=== PATIENT | male | born 1970 | race Caucasian/White ===

== ENCOUNTER → 2018-10-05 | Outpatient (CLI) | payer OTHER ==
[~2018-10-05] MED LIST: DIAZEPAM 5 MG TABLET ONE
--- NOTE | 2018-10-05 13:28 | RADIOLOGY REPORT (SQ) ---
EXAM DESCRIPTION: MRI LT UPPER JOINT WITHOUT COMPLETED DATE/TIME: 10/05/2018 12:54 pm REASON FOR STUDY: LT SHOULDER PAIN M25.512 PAIN IN LEFT SHOULDER COMPARISON: None. TECHNIQUE: Left shoulder images acquired and stored on PACS. Multiplanar imaging to include fat sens itive sequences such as T1, water sensitive sequences such as FST2/STIR, cartilage sensitive sequence s such as FSPD/gradient-echo sequences. LIMITATIONS: None. FINDINGS: BONE MARROW AND CORTEX: No worrisome bone lesions or marrow replacement. No occult fractur es. JOINT OR BURSAL EFFUSION: Trace fluid in the subacromial/subdeltoid bursa. Physiologic glenohumeral joint fluid. GLENO-HUMERAL ARTICULATION: Normal articulation. No subluxation. No cystic change. No osteophytes or cartilage loss. ACROMION AND AC JOINT: Type 2 acromion with mild widening of the AC joint and AC joint fluid present . Minimal bony spurring. Trace fluid in the subacromial/subdeltoid bursa ROTATOR CUFF AND INTERVAL: Minimal undersurface tendinopathy distal supra and infraspinatus tendons. subscapularis is intact. There is high signal along the rotator interval on sagittal images 8-12 worrisome for strain along th e rotator interval. No rotator interval thickening to suggest adhesive capsulitis. LABRUM AND BICEPS LABRAL COMPLEX: Intact. No labral tear. Intra-articular long-head biceps tendon n ormal. Distal biceps in normal location in bicipital groove. Benign sub labeled foramen, an anatomi c variant. REMAINDER OF LABRUM AND IGHL : No gross tear or paralabral cyst formation. Labral evaluation is less than optimal without joint distention. No thickening of IGHL to suggest adhesive capsulitis. PERIARTICULAR AND ADJACENT SOFT TISSUES: No masses or abnormal nodes. OTHER: No other significant finding. IMPRESSION: Widening of the AC joint with fluid in the AC joint question AC joint separation Inflammation along the rotator interval without discrete rotator interval tear Minimal tendinopathy undersurface distal supra and infraspinatus tendons TECHNICAL DOCUMENTATION: JOB ID: [id number] [employer]- All Rights Reserved Reading location - IP/workstation name: [facility]PER[facility]FORM[facility]LY [facility]-
== END ==
LOC: RAD 11:20
PROVIDERS: ATTEND Internal Medicine
DX: M25.512 Pain in left shoulder (principal)